=== PATIENT | female | born 1990 | race Caucasian/White ===

== ENCOUNTER 2020-05-12 11:57 | Emergency (ER) | payer OTHER ==
[~2020-05-12] VITALS: Ht 157.5 cm; Wt 61.2 kg
[2020-05-12 12:01] VITALS: BP 130/80
--- NOTE | 2020-05-12 12:03 | NUR ---
Patient ambulated to bed 12. RN evaluating patient at bedside.
--- NOTE | 2020-05-12 12:05 | NUR ---
29/F presents to ED with complaints of rash to bilateral upper arms and torso x2 days. 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 Pt states she is scheduled to see a brush polisher in May. Denies any pain. No signs of respiratory distress.
[2020-05-12] MEDS ORDERED: methylPREDNISolone SS 125 MG/2 ML VIAL IM ONE (12:20)
[2020-05-12 13:18] VITALS: BP 130/80
--- NOTE | 2020-05-12 13:19 | NUR ---
Patient discharged with v/s stable. Written and verbal after care instructions given and explained. Patient alert, oriented and verbalized understanding of instructions. Ambulatory with steady gait. All questions addressed prior to discharge. ID band removed. Patient advised to follow up with PMD. Rx of PREDISONE, BENADRYL, TOPICORT given. Patient educated on indication of medication including possible reaction and side effects. Opportunity to ask questions provided and answered.
== END 2020-05-12 13:09 | disposition home or self-care (01) ==
LOC: MED 11:57
DX: L23.9 Allergic contact dermatitis, unspecified cause (principal); T78.49XA Other allergy, initial encounter; X58.XXXA Exposure to other specified factors, initial encounter
CPT/HCPCS: 96372; 99283; J2930